=== PATIENT | female | born 1995 | race Caucasian/White ===

== ENCOUNTER 2016-05-29 15:43 | Emergency (ER) | payer MEDICAID ==
--- NOTE | 2016-05-29 17:16 | Emergency Department Record ---
History of Present Illness - General Chief Complaint: Suicidal thoughts Stated Complaint: EVALUATION Time Seen by Provider: 05/29/16 16:46 Source: Patient Mode of Arrival: Ambulatory Limitations: No limitations Travel/Exposure to [place] Within 21 Days of Symptoms: No - History of Present Illness Initial Comments: 20 yo female presents to ED with a CC of suicidal ideation. Patient reports that she was involved in a verbal altercation with her significant other this morning, and she expressed to family/friends that she was going to "commercial driver lore car into a ditch to kill herself". Patient reports a history of Bipolar disorder, but has been off Xanax and Lexapro as she is 8 weeks . Patient does report previous suicide attempts as well resulting from ingestion of pills. MD Complaint: Suicidal ideation Onset/Timin -: Hour(s) Associated Psychiatric Symptoms: Depression, Racing thoughts, Suicidal ideation History of same: Yes Quality: Intermittent Improves With: Medication Context: Not taking psychiatric medications Associated Symptoms: Nausea, Vomiting Treatments Prior to Arrival: None If Self Harm: Has plan Details of Plan: Pt states she wanted to drive her car into a ditch and kill herself. She denies doing anything and just had the thoughts. She denies wanting to hurt anyone else. - Sonido Coma Scale Eye Response: (4) Open spontaneously Motor Response: (6) Obeys commands Verbal Response: (5) Oriented Sonido Total: 15 - Related Data Home Medications Medication Instructions Recorded Confirmed Last Taken No Home Med [NO HOME MEDS] 05/29/16 05/29/16 Unknown Allergies Allergy/AdvReac Type Severity Reaction Status Date / Time No Known Drug Allergies Allergy Verified 05/29/16 16:15 Review of Systems Constitutional: Denies: Chills, Fever, Malaise, Night sweats Eyes: Denies: Eye discharge, Eye pain ENT: Denies: Congestion, Ear pain, Epistaxis Respiratory: Denies: Cough, Dyspnea, Stridor, Wheezes Cardiovascular: Denies: Chest pain, Dyspnea on exertion Endocrine: Denies: Fatigue, Heat or cold intolerance Gastrointestinal: Denies: Abdominal pain, Constipation Genitourinary: Denies: Dysuria, Frequency, Hematuria, Incontinence Musculoskeletal: Denies: Arthralgia, Back pain, Gout, Joint swelling Skin: Denies: Bruising, Change in color Neurological: Denies: Abnormal gait, Confusion, Headache, Seizure Psychiatric: Reports: Depression, Suicidal thoughts, Other (racing thoughts). Denies: Anxiety Hematological/Lymphatic: Denies: Anemia, Blood Clots Past Medical History - SOCIAL HISTORY Smoking Status: Current every day smoker Alcohol Use: None Drug Use: Occassional Drug Use Detail:: Marijuana - RESPIRATORY Hx Respiratory Disorders: No - CARDIOVASCULAR Hx Cardio Disorders: No - NEURO Hx Neuro Disorders: No - GI Hx GI Disorders: No - Hx Genitourinary Disorders: No - ENDOCRINE Hx Endocrine Disorders: No - MUSCULOSKELETAL Hx Musculoskeletal Disorders: No - PSYCH Hx Psych Problems: Yes Hx Anxiety: Yes Hx Depression: Yes Hx Suicide Attempt: No Comment:: boderline personality, mood disorders - HEMATOLOGY/ONCOLOGY Hx Hematology/Oncology Disorders: No Family Medical History Any Significant Family History?: Yes Hx Alcohol Use: Father, Mother, Brother/Sister, Grandparents Hx Anxiety: Father Hx Cancer: Grandparents Hx Depression: Father Hx Diabetes: Grandparents Hx Heart Disease: Grandparents Hx HTN: Father, Grandparents Hx Kidney Disease: Father Hx Resp Disorders: Grandparents Hx Seizures: Grandparents Hx Stroke: Grandparents Physical Exam - General General Appearance: Alert, Oriented x3, Cooperative, No acute distress Limitations: No limitations - Head Head exam: Atraumatic, Normocephalic, Normal inspection Head exam detail: negative: Abrasion, Contusion, Antony's sign, General tenderness, Hematoma, Laceration - Eye Eye exam: Normal appearance. negative: Conjunctival injection, Periorbital swelling, Periorbital tenderness, Scleral icterus - ENT Ear exam: negative: Auricular hematoma, Auricular trauma Nasal Exam: negative: Active bleeding, Discharge, Dried blood, Foreign body Mouth exam: negative: Drooling, Laceration, Muffled voice, Tongue elevation - Neck Neck exam: Normal inspection. negative: Meningismus, Tenderness - Respiratory Respiratory exam: Normal lung sounds bilaterally. negative: Respiratory distress, Rhonchi, Stridor, Wheezes - Cardiovascular Cardiovascular Exam: Regular rate, Normal rhythm, Normal heart sounds - GI/Abdominal GI/Abdominal exam: Soft. negative: Rebound, Rigid, Tenderness - Rectal Rectal exam: Deferred - exam: Deferred - Extremities Extremities exam: negative: Calf tenderness, Tenderness - Back Back exam: Denies: CVA tenderness (R), CVA tenderness (L) - Neurological Neurological exam: Alert, Normal gait, Oriented X3 - Psychiatric Psychiatric exam: Normal affect, Normal mood - Skin Skin exam: negative: Abrasion Type of lesion: negative: abrasion Course Vital Signs 05/29/16 15:51 Temperature 98.1 F Pulse Rate 106 H Respiratory 16 Rate Blood Pressure 151/87 Pulse Ox 99 - Reevaluation(s) Reevaluation #1: 05/29/16 18:34 Labs reviewed, WBC 16.3, 87% neutrophils. Labs are otherwise grossly unremarkable for an acute process. Certification compelted. [facility] contacted for transfer and evaluation. Reevaluation #2: 05/29/16 18:36 Case was discussed with Robel at [facility], will fax all paperwork for medical clearance. Reevaluation #3: 05/29/16 19:47 All records have been faxed and received, case was discussed with oncoming provider, will assume care pending transfer to [facility] for psychiatric evaluation. Medical Decision Making - Lab Data Result diagrams: 05/29/16 17:10 05/29/16 17:10 Disposition Disposition: Discharge Clinical Impression: Suicidal ideation Disposition: Psychiatric Hospital Condition: (2) Stable Instructions: Suicide Prevention for Adults (ED) Forms: Patient Portal Access Time of Disposition: 19:48
[2016-05-29 17:17] LABS: HEMATOCRIT 40.4 % (35.0-47.0); HEMOGLOBIN 13.5 gm/dl (11.6-16.0); MEAN CELL VOLUME 87.1 fl (81-97); MEAN CORPUSCULAR HEMOGLOBIN 29.1 pg (27-33); MEAN CORPUSCULAR HGB CONC 33.4 g/dl (32-36); MEAN PLATELET VOLUME 9.8 fl (7.4-10.4); PLATELET COUNT 264 K/uL (130-400); RED BLOOD COUNT 4.64 M/uL (3.80-5.40); RED CELL DISTRIBUTION WIDTH 12.8 % (11.5-14.5); WHITE BLOOD COUNT W/O DIFF 16.3 K/uL (4.2-12.2)
[2016-05-29 17:22] LABS: AMPHETAMINE SCREEN URINE NOT DETECTED; BARBITURATE SCREEN URINE NOT DETECTED; BENZODIAZEPINE SCREEN URINE NOT DETECTED; COCAINE SCREEN URINE NOT DETECTED; METHADONE SCREEN URINE NOT DETECTED; METHAMPHETAMINE SCREEN NOT DETECTED; OPIATE SCREEN URINE NOT DETECTED; OXYCODONE SCREEN URINE NOT DETECTED; PHENCYCLIDINE SCREEN URINE NOT DETECTED; PROPOXYPHENE SCREEN URINE NOT DETECTED; THC SCREEN URINE NOT DETECTED; TRICYCLIC ANTIDEPRESSANT SCRN NOT DETECTED
[2016-05-29 17:25] LABS: PLATELET ESTIMATE NORMAL (NORMAL)
[2016-05-29 17:30] LABS: ALB/GLOB RATIO 1.6 (1.1-1.8); ALBUMIN 4.6 gm/dL (3.5-5.0); ALKALINE PHOSPHATASE 88 U/L (38-126); ALT/SGPT 27 U/L (9-52); ANION GAP 16.1 (7-16); AST/SGOT 13 U/L (14-36); BILIRUBIN,TOTAL 0.37 mg/dL (0.2-1.3); BLOOD UREA NITROGEN 6 mg/dL (7-17); CARBON DIOXIDE 19.9 mmol/L (22-30); CREATININE 0.5 mg/dL (0.52-1.04); EST GLOMERULAR FILTRATION RATE > 60 ml/min; GLUCOSE,RANDOM 83 mg/dL (70-110); TOTAL PROTEIN 7.4 gm/dL (6.3-8.2)
[2016-05-29 17:31] LABS: ACETAMINOPHEN < 10.0 ug/mL (10.0-30.0); SALICYLATE < 1.0 mg/dL (2.8-20.0)
[2016-05-29 18:00] LABS: THYROID STIMULATING HORMONE 0.92 uIU/ml (0.465-4.68)
[2016-05-29] MEDS ORDERED: ACETAMINOPHEN 325 MG TAB PO ONE (19:39)
--- NOTE | 2016-05-29 20:54 | Emergency Department Record ---
History of Present Illness - General Chief Complaint: Suicidal thoughts Stated Complaint: EVALUATION Time Seen by Provider: 05/29/16 16:46 Source: Patient Mode of Arrival: Ambulatory Travel/Exposure to [place] Within 21 Days of Symptoms: No - History of Present Illness Initial Comments: 20 yo female presented with suicidal ideations. (Threaten to crash her automobile). The patient was placed under an application and certification by Dr Pa Her information was sent to [facility]. She has been accepted by [facility] for transfer for evaluation. Onset/Timin -: Hour(s) Associated Psychiatric Symptoms: Depression, Racing thoughts, Suicidal ideation History of same: Yes Quality: Intermittent Improves With: Medication Context: Not taking psychiatric medications Associated Symptoms: Nausea, Vomiting Treatments Prior to Arrival: None If Self Harm: Has plan Details of Plan: Pt states she wanted to drive her car into a ditch and kill herself. She denies doing anything and just had the thoughts. She denies wanting to hurt anyone else. - Sonido Coma Scale Eye Response: (4) Open spontaneously Motor Response: (6) Obeys commands Verbal Response: (5) Oriented Sonido Total: 15 - Related Data Home Medications Medication Instructions Recorded Confirmed Last Taken No Home Med [NO HOME MEDS] 05/29/16 05/29/16 Unknown Allergies Allergy/AdvReac Type Severity Reaction Status Date / Time No Known Drug Allergies Allergy Verified 05/29/16 16:15 Review of Systems Constitutional: Denies: Chills, Fever, Malaise, Night sweats Eyes: Denies: Eye discharge, Eye pain ENT: Denies: Congestion, Ear pain, Epistaxis Respiratory: Denies: Cough, Dyspnea, Stridor, Wheezes Cardiovascular: Denies: Chest pain, Dyspnea on exertion Endocrine: Denies: Fatigue, Heat or cold intolerance Gastrointestinal: Denies: Abdominal pain, Constipation Genitourinary: Denies: Dysuria, Frequency, Hematuria, Incontinence Musculoskeletal: Denies: Arthralgia, Back pain, Gout, Joint swelling Skin: Denies: Bruising, Change in color Neurological: Denies: Abnormal gait, Confusion, Headache, Seizure Psychiatric: Reports: Depression, Suicidal thoughts, Other (racing thoughts). Denies: Anxiety Hematological/Lymphatic: Denies: Anemia, Blood Clots Past Medical History - SOCIAL HISTORY Smoking Status: Current every day smoker Alcohol Use: None Drug Use: Occassional Drug Use Detail:: Marijuana - RESPIRATORY Hx Respiratory Disorders: No - CARDIOVASCULAR Hx Cardio Disorders: No - NEURO Hx Neuro Disorders: No - GI Hx GI Disorders: No - Hx Genitourinary Disorders: No - ENDOCRINE Hx Endocrine Disorders: No - MUSCULOSKELETAL Hx Musculoskeletal Disorders: No - PSYCH Hx Psych Problems: Yes Hx Anxiety: Yes Hx Depression: Yes Hx Suicide Attempt: No Comment:: boderline personality, mood disorders - HEMATOLOGY/ONCOLOGY Hx Hematology/Oncology Disorders: No Family Medical History Any Significant Family History?: Yes Hx Alcohol Use: Father, Mother, Brother/Sister, Grandparents Hx Anxiety: Father Hx Cancer: Grandparents Hx Depression: Father Hx Diabetes: Grandparents Hx Heart Disease: Grandparents Hx HTN: Father, Grandparents Hx Kidney Disease: Father Hx Resp Disorders: Grandparents Hx Seizures: Grandparents Hx Stroke: Grandparents Physical Exam - General Limitations: No limitations Course Vital Signs 05/29/16 15:51 Temperature 98.1 F Pulse Rate 106 H Respiratory 16 Rate Blood Pressure 151/87 Pulse Ox 99 - Reevaluation(s) Reevaluation #1: EMS called out. No current rig available While waiting IVF bolus and Zofran will be provided as well as PO fluids. 05/29/16 21:40 Medical Decision Making - Lab Data Result diagrams: 05/29/16 17:10 05/29/16 17:10 Lab Results 05/29/16 05/29/16 05/29/16 Range/Units 17:10 17:10 17:10 WBC 16.3 H (4.2-12.2) K/uL RBC 4.64 (3.80-5.40) M/uL Hgb 13.5 (11.6-16.0) gm/dl Hct 40.4 (35.0-47.0) % MCV 87.1 (81-97) fl MCH 29.1 (27-33) pg MCHC 33.4 (32-36) g/dl RDW 12.8 (11.5-14.5) % Plt Count 264 (130-400) K/uL MPV 9.8 (7.4-10.4) fl Neutrophils % 87.0 H (47-80) % Band Neutrophils % 2.0 (0-5) % Lymphocytes % 10.0 L (16-45) % Monocytes % 1.0 (0-9) % Eosinophils % Not Reportable Basophils % Not Reportable Platelet Estimate Normal (NORMAL) RBC Morphology Normal Sodium 138 (136-145) mmol/L Potassium 4.0 (3.5-5.1) mmol/L Chloride 102 (98-107) mmol/L Carbon Dioxide 19.9 L (22-30) mmol/L Anion Gap 16.1 H (7-16) BUN 6 L (7-17) mg/dL Creatinine 0.5 L (0.52-1.04) mg/dL Estimated GFR > 60 ml/min Random Glucose 83 (70-110) mg/dL Calcium 9.4 (8.5-10.1) mg/dL Total Bilirubin 0.37 (0.2-1.3) mg/dL AST 13 L (14-36) U/L ALT 27 (9-52) U/L Alkaline Phosphatase 88 (38-126) U/L Total Protein 7.4 (6.3-8.2) gm/dL Albumin 4.6 (3.5-5.0) gm/dL Globulin 2.8 (1.4-4.8) gm/dL Albumin/Globulin Ratio 1.6 (1.1-1.8) TSH 0.92 (0.465-4.68) uIU/ml Salicylates < 1.0 L (2.8-20.0) mg/dL Urine Opiates Screen Not detected Ur Oxycodone Screen Not detected Urine Methadone Screen Not detected Ur Propoxyphene Screen Not detected Acetaminophen < 10.0 L (10.0-30.0) ug/mL Ur Barbituates Screen Not detected Ur Tricyclics Screen Not detected Ur Phencyclidine Scrn Not detected Ur Amphetamine Screen Not detected U Methamphetamines Scrn Not detected U Benzodiazepines Scrn Not detected Urine Cocaine Screen Not detected Urine Cannabis Screen Not detected Ethyl Alcohol (0-0.010) g/dL 05/29/16 Range/Units 17:10 WBC (4.2-12.2) K/uL RBC (3.80-5.40) M/uL Hgb (11.6-16.0) gm/dl Hct (35.0-47.0) % MCV (81-97) fl MCH (27-33) pg MCHC (32-36) g/dl RDW (11.5-14.5) % Plt Count (130-400) K/uL MPV (7.4-10.4) fl Neutrophils % (47-80) % Band Neutrophils % (0-5) % Lymphocytes % (16-45) % Monocytes % (0-9) % Eosinophils % Basophils % Platelet Estimate (NORMAL) RBC Morphology Sodium (136-145) mmol/L Potassium (3.5-5.1) mmol/L Chloride (98-107) mmol/L Carbon Dioxide (22-30) mmol/L Anion Gap (7-16) BUN (7-17) mg/dL Creatinine (0.52-1.04) mg/dL Estimated GFR ml/min Random Glucose (70-110) mg/dL Calcium (8.5-10.1) mg/dL Total Bilirubin (0.2-1.3) mg/dL AST (14-36) U/L ALT (9-52) U/L Alkaline Phosphatase (38-126) U/L Total Protein (6.3-8.2) gm/dL Albumin (3.5-5.0) gm/dL Globulin (1.4-4.8) gm/dL Albumin/Globulin Ratio (1.1-1.8) TSH (0.465-4.68) uIU/ml Salicylates (2.8-20.0) mg/dL Urine Opiates Screen Ur Oxycodone Screen Urine Methadone Screen Ur Propoxyphene Screen Acetaminophen (10.0-30.0) ug/mL Ur Barbituates Screen Ur Tricyclics Screen Ur Phencyclidine Scrn Ur Amphetamine Screen U Methamphetamines Scrn U Benzodiazepines Scrn Urine Cocaine Screen Urine Cannabis Screen Ethyl Alcohol 0.000 (0-0.010) g/dL Disposition Disposition: Transfer Clinical Impression: Suicidal ideation Disposition: Psychiatric Hospital Transfer To: [facility] Reason For Transfer: suicidal ideations Accepting Physician: crisis services Time Discussed w/Accepting Physician: 20:30 Condition: (2) Stable Instructions: Suicide Prevention for Adults (ED) Forms: Patient Portal Access Time of Disposition: 20:30
[2016-05-29] MEDS ORDERED: ONDANSETRON 4 MG ODT TABLET SL ONE (21:36)
[2016-05-29] MEDS ORDERED: 0.9 % SODIUM CHLORIDE 1,000 ML BAG IV ONE (21:37)
== END 2016-05-29 23:33 ==
LOC: ER 15:43
DX: R45.851 Suicidal ideations (principal); R11.2 Nausea with vomiting, unspecified; F31.9 Bipolar disorder, unspecified
CPT/HCPCS: 99285 ×2; 96360; 80053; 84443; 85027; G0480 ×3; G0477; 80320; 80329; J7030

== ENCOUNTER 2017-01-10 20:38 | Emergency (ER) | payer MEDICAID | END 2017-01-10 21:40 | disposition left against medical advice (07) | LOC: ER 20:38 | DX: Z53.20 Procedure and treatment not carried out because of patient's decision for unspecified reasons (principal) ==